=== PATIENT | female | born 1985 | race Caucasian/White ===

== ENCOUNTER 2018-07-18 18:21 | Emergency (ER) | payer SELFPAY ==
[~2018-07-18] VITALS: Ht 160 cm; Wt 88.2 kg
[2018-07-18 18:34] VITALS: BP 122/82
--- NOTE | 2018-07-18 19:27 | PHYS DOC ---
Past History Past Medical History: Depression Past Surgical History: Other Alcohol Use: Occasionally Drug Use: None Adult General Chief Complaint Chief Complaint: WOUND CHECK HPI HPI 32-year-old female presents for wound check of her left index finger. The patient was seen in another local hospital he days ago after cutting off the end of her finger. They sewed back on but told her that it was likely to . The skin is now a dark color and she is concerned. She does not want to get infected. Patient does not have a primary care physician. She was not referred to wound care. She denies fever or chills. He has no new complaints. Review of Systems Review of Systems Constitutional: Denies fever or chills [] Eyes: Denies change in visual acuity, redness, or eye pain [] HENT: Denies nasal congestion or sore throat [] Respiratory: Denies cough or shortness of breath [] Cardiovascular: No additional information not addressed in HPI [] GI: Denies abdominal pain, nausea, vomiting, bloody stools or diarrhea [] : Denies dysuria or hematuria [] Musculoskeletal: Denies back pain or joint pain [] Integument: Skin avulsion left index finger[] Neurologic: Denies headache, focal weakness or sensory changes [] Endocrine: Denies polyuria or polydipsia [] All other systems were reviewed and found to be within normal limits, except as documented in this note. Allergies Allergies Allergies Coded Allergies Type Severity Reaction Last Updated Verified amoxicillin Allergy Unknown Itching 07/18/18 Yes Physical Exam Physical Exam Constitutional: Well developed, well nourished, no acute distress, non-toxic appearance. [] HENT: Normocephalic, atraumatic, bilateral external ears normal, oropharynx moist, no oral exudates, nose normal. [] Eyes: PERRLA, EOMI, conjunctiva normal, no discharge. [] Neck: Normal range of motion, no tenderness, supple, no stridor. [] Cardiovascular:Heart rate regular rhythm, no murmur [] Lungs & Thorax: Bilateral breath sounds clear to auscultation [] Abdomen: Bowel sounds normal, soft, no tenderness, no masses, no pulsatile masses. [] Skin: Left index finger with a sutured flap. There is nonviable tissue as well as viable tissue. Then nontraumatized tissue is pink and appropriate. There are no signs of infection.[] Back: No tenderness, no CVA tenderness. [] Extremities: No tenderness, no cyanosis, no clubbing, ROM intact, no edema. [] Neurologic: Alert and oriented X 3, normal motor function, normal sensory function, no focal deficits noted. [] Psychologic: Affect normal, judgement normal, mood normal. [] Current Patient Data Vital Signs Vital Signs Date Time Temp Pulse Resp B/P (MAP) Pulse Ox O2 Delivery O2 Flow Rate FiO2 07/18/18 18:34 98.8 83 18 100 Room Air EKG EKG [] Radiology/Procedures Radiology/Procedures [] Course & Med Decision Making Course & Med Decision Making Pertinent Labs and Imaging studies reviewed. (See chart for details) Patient's wound is as I would expect with a complete avulsion of skin. The skin was sewn back on is dying. Explained to the patient that he would be a long wound healing process. She should follow up as directed by the other facility. She might consider a referral to wound care. I do not see any sign of infection. She is stable for discharge at this time. [] Dragon Disclaimer Dragon Disclaimer This electronic medical record was generated, in whole or in part, using a voice recognition dictation system. Departure Departure: Impression: Primary Impression: Avulsion of skin of finger Disposition: 01 HOME, SELF-CARE Condition: STABLE Referrals: PCPMARLON (PCP) Patient Instructions: Finger Avulsion ADAN PARKER DO Jul 18, 2018 19:27
== END 2018-07-18 19:33 | disposition home or self-care (01) ==
LOC: ER 18:21
DX: S61.301A Unspecified open wound of left index finger with damage to nail, initial encounter (principal); F32.9 Major depressive disorder, single episode, unspecified; Z88.1 Allergy status to other antibiotic agents; X58.XXXA Exposure to other specified factors, initial encounter; Y93.89 Activity, other specified; Y92.89 Other specified places as the place of occurrence of the external cause; Y99.8 Other external cause status
CPT/HCPCS: 99281

== ENCOUNTER 2019-03-02 13:40 | Emergency (ER) | payer SELFPAY ==
[~2019-03-02] VITALS: Ht 160 cm; Wt 88.2 kg
--- NOTE | 2019-03-02 14:00 | EKG ---
[address] [address] Test Date: 2019-03-02 Test Time: 13:57:06 Pat Name: DESTINY PATRICK Department: Room: Gender: F Social Scientist: TONEY : 1985 Requested By: VALENTINO HOUSER Order Number: [id number] Reading MD: Measurements Intervals [place] Rate: 75 P: 47 OK: 116 QRS: 52 QRSD: 88 T: 41 QT: 356 QTc: 400 Interpretive Statements SINUS RHYTHM QRS(T) CONTOUR ABNORMALITY CONSIDER ANTEROLATERAL MYOCARDIAL DAMAGE T ABNORMALITY IN ANTEROSEPTAL LEADS ABNORMAL ECG RI6.01 No previous ECG available for comparison
--- NOTE | 2019-03-02 14:27 | RAD ---
Single view of the chest. 03/02/2019 1:57 PM Indication: Chest pain Comparison: None Findings: There is no focal consolidation. There is no pleural effusion or pneumothorax. The cardiomediastinal silhouette and pulmonary vasculature are within normal limits. No acute osseous abnormalities are seen. Impression: No evidence of acute cardiopulmonary process. Electronically signed by: Valeriy Castrejon MD (03/02/2019 2:24 PM) [facility]
[2019-03-02 14:51] LABS: BASO % 1 % (0-3); EOS % 1 % (0-3); HEMATOCRIT 41.2 % (36.0-47.0); HEMOGLOBIN 13.7 g/dL (12.0-15.5); LYMPH # 1.3 x10^3/uL (1.0-4.8); LYMPH % 28 % (24-48); MEAN CORPUSCULAR HEMOGLOBIN 31 pg (25-35); MEAN CORPUSCULAR HGB CONC 33 g/dL (31-37); MEAN CORPUSCULAR VOLUME 92 fL (79-100); MONO # 0.3 x10^3/uL (0.0-1.1); MONO % 7 % (0-9); NEUT # 3.1 x10^3uL (1.8-7.7); NEUT % 64 % (31-73); PLATELET COUNT 272 x10^3/uL (140-400); RED BLOOD COUNT 4.48 x10^6/uL (3.50-5.40); RED CELL DISTRIBUTION WIDTH 15.3 % (11.5-14.5); WHITE BLOOD COUNT 4.9 x10^3/uL (4.0-11.0)
[2019-03-02 15:01] LABS: ALBUMIN 3.8 g/dL (3.4-5.0); CALCIUM 8.9 mg/dL (8.5-10.1); CREATININE 0.7 mg/dL (0.6-1.0); TOTAL PROTEIN 7.6 g/dL (6.4-8.2)
[2019-03-02 15:02] LABS: GFR 96.4; TOTAL BILIRUBIN 0.3 mg/dL (0.2-1.0)
[2019-03-02 15:16] VITALS: BP 114/79
--- NOTE | 2019-03-02 17:33 | PHYS DOC ---
Past History Past Medical History: Depression Past Surgical History: No Surgical History Alcohol Use: None Drug Use: None Adult General Chief Complaint Chief Complaint: CHEST PAIN HPI HPI Patient is a 33-year-old female presenting with dizziness. She says that for the last 3 weeks she has had almost daily chest discomfort described as tightness in the heart racing she says it happens when she gets stressed out and usually happens when she sitting down or lying flat it does not happen with exertion usually. Then yesterday she was at work she was cleaning an oven when she was sort of crouched over and then stood up quickly she got very lightheaded like a head andujar and she thought she might pass out this concerned her so she came to the emergency room today for evaluation. Patient has psychiatric medication denies cardiac history denies her blood pressure denies smoking Review of Systems Review of Systems Constitutional: Denies fever or chills [] Eyes: Denies change in visual acuity, redness, or eye pain [] HENT: Denies nasal congestion or sore throat [] Respiratory : Denies dysuria or hematuria [] Musculoskeletal: Denies back pain or joint pain [] Integument: Denies rash or skin lesions [] Neurologic: Denies headache, focal weakness or sensory changes [] Endocrine: Denies polyuria or polydipsia [] All other systems were reviewed and found to be within normal limits, except as documented in this note. Allergies Allergies Allergies Coded Allergies Type Severity Reaction Last Updated Verified amoxicillin Allergy Unknown Itching 07/18/18 Yes Physical Exam Physical Exam Constitutional: Well developed, well nourished, no acute distress, non-toxic sid earance. [] HENT: Normocephalic, atraumatic, bilateral external ears normal, oropharynx moist, no oral exudates, nose normal. [] Eyes: PERRLA, EOMI, conjunctiva normal, no discharge. [] Neck: Normal range of motion, no tenderness, supple, no stridor. [] Cardiovascular:Heart rate regular rhythm, no murmur [] Lungs & Thorax: Bilateral breath sounds clear to auscultation [] Abdomen: Bowel sounds normal, soft, no tenderness, no masses, no pulsatile masses. [] Skin: Warm, dry, no erythema, no rash. [] Back: No tenderness, no CVA tenderness. [] Extremities: No tenderness, no cyanosis, no clubbing, ROM intact, no edema. [] Neurologic: Alert and oriented X 3, normal motor function, normal sensory function, no focal deficits noted. []Are intact bilaterally no nystagmus patient has a normal gait Psychologic: Affect normal, judgement normal, mood normal. [] Current Patient Data Vital Signs Vital Signs Date Time Temp Pulse Resp B/P (MAP) Pulse Ox O2 Delivery O2 Flow Rate FiO2 03/02/19 15:16 98.4 77 18 98 Room Air perature (Fahrenheit): * 98.4 degrees F (97.6-99.5) Patient Temperature * 98.4 degrees F (97.5-99.5) Temperature Source * Oral Blood Pressure Systolic * 114 mm Hg (100-140) Blood Pressure Diastolic * 79 mm Hg (60-100) Blood Pressure Mean * 91 mm Hg Pulse Rate * 77 beats per minute (60-90) Respiratory Rate * 18 breaths per minute (12-24) Oxygen Delivery Method * Room Air Bedside Pulse Oximetry * 98 % Treatment Prior to Arrival * Yes Lab Results Laboratory Tests Test 03/02/19 14:31 White Blood Count 4.9 x10^3/uL (4.0-11.0) Red Blood Count 4.48 x10^6/uL (3.50-5.40) Hemoglobin 13.7 g/dL (12.0-15.5) Hematocrit 41.2 % (36.0-47.0) Mean Corpuscular Volume 92 fL (79-100) Mean Corpuscular Hemoglobin 31 pg (25-35) Mean Corpuscular Hemoglobin Concent 33 g/dL (31-37) Red Cell Distribution Width 15.3 % (11.5-14.5) H Platelet Count 272 x10^3/uL (140-400) Neutrophils (%) (Auto) 64 % (31-73) Lymphocytes (%) (Auto) 28 % (24-48) Monocytes (%) (Auto) 7 % (0-9) Eosinophils (%) (Auto) 1 % (0-3) Basophils (%) (Auto) 1 % (0-3) Neutrophils # (Auto) 3.1 x10^3uL (1.8-7.7) Lymphocytes # (Auto) 1.3 x10^3/uL (1.0-4.8) Monocytes # (Auto) 0.3 x10^3/uL (0.0-1.1) Eosinophils # (Auto) 0.0 x10^3/uL (0.0-0.7) Basophils # (Auto) 0.0 x10^3/uL (0.0-0.2) Maternal Serum HCG Beta Subunit 1 mIU/mL (0-6) Sodium Level 140 mmol/L (136-145) Potassium Level 4.0 mmol/L (3.5-5.1) Chloride Level 105 mmol/L (98-107) Carbon Dioxide Level 25 mmol/L (21-32) Anion Gap 10 (6-14) Blood Urea Nitrogen 15 mg/dL (7-20) Creatinine 0.7 mg/dL (0.6-1.0) Estimated GFR (Cockcroft-Gault) 96.4 BUN/Creatinine Ratio 21 (6-20) H Glucose Level 96 mg/dL (70-99) Calcium Level 8.9 mg/dL (8.5-10.1) Total Bilirubin 0.3 mg/dL (0.2-1.0) Aspartate Amino Transferase (AST) 13 U/L (15-37) L Alanine Aminotransferase (ALT) 16 U/L (14-59) Alkaline Phosphatase 61 U/L (46-116) Troponin I Quantitative < 0.017 ng/mL (0-0.055) Total Protein 7.6 g/dL (6.4-8.2) Albumin 3.8 g/dL (3.4-5.0) Albumin/Globulin Ratio 1.0 (1.0-1.7) EKG EKG []Normal sinus rhythm rate of [address] changes noted anteriorly no STEMI no obvious acute ischemia was identified no old EKG for comparison Radiology/Procedures Radiology/Procedures [] Impressions: Comparison: None Findings: There is no focal consolidation. There is no pleural effusion or pneumothorax. The cardiomediastinal silhouette and pulmonary vasculature are within normal limits. No acute osseous abnormalities are seen. Impression: No evidence of acute cardiopulmonary process. Electronically signed by: Valeriy Forte MD (03/02/2019 2:24 PM) [facility] DICTATED AND SIGNED BY: VALERIY FORTE MD DATE: 03/02/19 1422 CC: VALENTINO HOUSER MD; PCP,NO ~ Course & Med Decision Making Course & Med Decision Making Pertinent Labs and Imaging studies reviewed. (See chart for details) []This is a well-appearing 33-year-old female who presents with 3 weeks of chest discomfort with some associated palpitations very atypical sounding pain troponin negative after this long-standing time. No obvious ischemia was identified patient's chest pain is not exertional in nature. Had some dizziness yesterday could be hypovolemic recommended hydration no signs of objective neurologic deficit patient was discharged in stable condition perc negative no signs of dvt in exam no ocp vitals good Dragon Disclaimer Dragon Disclaimer This electronic medical record was generated, in whole or in part, using a voice recognition dictation system. Departure Departure: Impression: Primary Impression: Dizziness Disposition: 01 HOME, SELF-CARE Condition: STABLE Patient Instructions: Brien, [id number] VALENTINO HOUSER MD Mar 02, 2019 17:33
== END 2019-03-02 15:27 | disposition home or self-care (01) ==
LOC: ER 13:40
DX: R42 Dizziness and giddiness (principal); R07.89 Other chest pain; F32.9 Major depressive disorder, single episode, unspecified; Z88.1 Allergy status to other antibiotic agents
CPT/HCPCS: 36415; 71045; 80053; 84484; 84702; 85025; 93005; 99285

== ENCOUNTER 2020-02-28 22:56 | Emergency (ER) | payer SELFPAY ==
[~2020-02-28] VITALS: Ht 160 cm; Wt 88.2 kg
[2020-02-28 22:56] VITALS: BP 147/86
[2020-02-28] MEDS ORDERED: CLIN300C8 PO (23:20)
[2020-02-28] MEDS ORDERED: HYDR-3165 PO (23:20)
[2020-02-28] MEDS ORDERED: CHLO15MO2 PO (23:20)
--- NOTE | 2020-02-28 23:21 | PHYS DOC ---
Past History Past Medical History: Depression Past Surgical History: No Surgical History Smoking: Non-smoker Alcohol Use: None Drug Use: None General Adult EDM: Chief Complaint: Tooth ache HPI: HPI: 34-year-old female presents with 2-week history of progressive dental pain primarily to the right lower wisdom tooth. Patient reports she has not followed with a dentist for several years. Denies smoking. Denies fever or chills. Denies trauma. Patient reports she has been brushing her teeth and has noted pieces of the tooth have been falling out. Denies . Review of Systems: Review of Systems: Constitutional: Denies fever or chills HENT: Denies nasal congestion or sore throat; reports tooth ache Integument: Denies rash or skin lesions Neurologic: Denies headache, focal weakness or sensory changes Complete systems were reviewed and found to be within normal limits, except as documented in this note. Current Medications: Current Meds: Current Medications Medications (Trade) Dose Ordered Sig/Saul Start Time Stop Time Status Last Admin Dose Admin Clindamycin HCl (Cleocin) 450 mg 1X ONCE 02/28/20 23:30 02/28/20 23:31 Dexamethasone (Decadron) 10 mg 1X ONCE 02/28/20 23:30 02/28/20 23:31 Allergies: Allergies: Allergies Coded Allergies Type Severity Reaction Last Updated Verified amoxicillin Allergy Unknown Itching 07/18/18 Yes Physical Exam: PE: Constitutional: Well developed, well nourished, appears uncomfortable, non-toxic appearance HENT: Normocephalic, atraumatic, poor dentition, pain on palpation to right mandibular third molar, dental caries noted Eyes: Conjunctiva normal, no discharge Neck: Normal range of motion, no tenderness, supple Lungs & Thorax: No respiratory distress, equal chest rise and fall Skin: Warm, dry, no erythema, no rash Neurologic: Alert and oriented X 3, no focal deficits noted Psychologic: Affect normal, judgment normal EKG: EKG: [] Radiology/Procedures: Radiology/Procedures: [] Course & Med Decision Making: Course & Med Decision Making Patient presents with acute dentalgia with poor dentition noted. Empiric antibiotic initiated. Pain addressed. Patient stable for discharge with outpatient follow-up with PCP/dentist. Dental resources provided. Discussed findings and plan with patient, who acknowledges understanding and agreement. Reji Disclaimer: Reji Disclaimer: This electronic medical record was generated, in whole or in part, using a voice recognition dictation system. Departure Departure: Impression: Primary Impression: Dentalgia Additional Impression: Dental caries Disposition: 01 DC HOME SELF CARE/HOMELESS Condition: STABLE Referrals: NON,STAFF (PCP) Patient Instructions: Dental Caries, Toothache-Brief Additional Instructions: May also use over the counter Ibuprofen for pain or discomfort. Scripts Clindamycin Hcl (CLINDAMYCIN HCL) 300 Mg Capsule 1 CAP PO TID for infection for 7 Days, #21 CAP Prov: BG GATICA DO 02/28/20 Hydrocodone Bit/Acetaminophen (NORCO 5-325 TABLET) 1 Each Tablet 0.5-1 TAB PO Q6HRS PRN for PAIN, #10 TAB Prov: BG GATICA DO 02/28/20 Chlorhexidine Gluconate (PERIDEX) 15 Ml Mouthwash 15 ML PO BID for dental infection for 7 Days, #473 ML 0 Refills Prov: BG GATICA DO 02/28/20 BG GATICA DO Feb 28, 2020 23:20
[2020-02-28] MEDS ORDERED: CLINDAMYCIN HCL 150 MG CAPSULE PO ONE (23:30)
[2020-02-28] MEDS ORDERED: HYDROcodone/APAP 5/325MG 1 TAB TABLET PO ONE (23:30)
[2020-02-28] MEDS ORDERED: DEXAMETHASONE 4 MG TABLET PO ONE (23:30)
== END 2020-02-28 23:41 | disposition home or self-care (01) ==
LOC: ER 22:56
DX: K02.9 Dental caries, unspecified (principal); F32.9 Major depressive disorder, single episode, unspecified; Z88.1 Allergy status to other antibiotic agents
CPT/HCPCS: 99284; J8540

== ENCOUNTER 2021-04-21 11:27 | Emergency (ER) | payer SELFPAY ==
[~2021-04-21] VITALS: Ht 160 cm; Wt 88.2 kg
[~2021-04-21 11:27] MED LIST: CHLO15MO2 PO; CLIN-95 PO; HYDR-3165 PO
[2021-04-21 12:18] VITALS: BP 113/69
[2021-04-21] MEDS ORDERED: KETO15CR2 TP (13:12)
--- NOTE | 2021-04-21 13:13 | PHYS DOC ---
Past History Past Medical History: Depression Additional Past Medical Histor: dyshidrotic eczema (ABRAHAN CAMPBELL APRN) Past Surgical History: No Surgical History (ABRAHAN CAMPBELL APRN) Smoking: Non-smoker Alcohol Use: None Drug Use: None (ABRAHAN CAMPBELL APRN) General Adult EDM: Chief Complaint: SKIN RASH/ABSCESS HPI: HPI: Patient is a 35-year-old female who presents to the emergency department for eczema to her right palm that started 2 days ago. Patient reports that she uses ketoconazole but it is . She is reporting itching, scaly dermatitis-like rash to her right palm. Patient is requesting a steroid shot. She reports that she normally receives these whenever she has an eczema flare and it helps her symptoms. Patient denies any fevers, joint pain. (ABRAHAN CAMPBELL APRN) Review of Systems: Review of Systems: Constitutional: See HPI Musculoskeletal: See HPI Integument: See HPI (ABRAHAN CAMPBELL APRN) Allergies: Allergies: Allergies Coded Allergies Type Severity Reaction Last Updated Verified amoxicillin Allergy Unknown Itching 07/18/18 Yes (ABRAHAN CAMPBELL APRN) Physical Exam: PE: Constitutional: Well developed, well nourished, no acute distress, non-toxic appearance. [] HENT: Normocephalic, atraumatic, bilateral external ears normal, oropharynx moist, no oral exudates, nose normal. [] Eyes: PERRL, EOMI, conjunctiva normal, no discharge. [] Neck: Normal range of motion, no stridor Cardiovascular: Normal peripheral perfusion Lungs & Thorax: Normal work of breathing, no tachypnea Abdomen: Soft and flat Skin: Warm, dry, dry, scaly, erythematous rash noted to right palm Back: Range of motion Extremities: No tenderness, no cyanosis, no clubbing, ROM intact, no edema. [] Neurologic: Alert and oriented X 3, normal motor function, normal sensory function, no focal deficits noted. Right hand: Range of motion intact, neuro intact, no redness or streaking up patient's arm, no warmth Psychologic: Affect normal, judgement normal, mood normal. [] (ABRAHAN CAMPBELL APRN) Current Patient Data: Vital Signs: Vital Signs Date Time Temp Pulse Resp B/P (MAP) Pulse Ox O2 Delivery O2 Flow Rate FiO2 12/28/21 12:18 98.8 89 16 113/69 (84) 98 04/21/21 12:18 Room Air (ABRAHAN CAMPBELL APRN) EKG: EKG: [] (ABRAAHN CAMPBELL APRN) Radiology/Procedures: Radiology/Procedures: [] (ABRAHAN CAMPBELL APRN) Heart Score: C/O Chest Pain: N/A Risk Factors: Risk Factors: DM, Current or recent (<one month) smoker, HTN, HLP, family history of CAD, obesity. Risk Scores: Score 0 - 3: 2.5% MACE over next 6 weeks - Discharge Home Score 4 - 6: 20.3% MACE over next 6 weeks - Admit for Clinical Observation Score 7 - 10: 72.7% MACE over next 6 weeks - Early Invasive Strategies (ABRAHAN CAMPBELL APRN) Course & Med Decision Making: Course & Med Decision Making Pertinent Labs and Imaging studies reviewed. (See chart for details) [] Patient presents to the emergency department for a rash to her right palm. Patient reports that this is consistent with her eczema. She takes ketoconazole but it is . Patient is requesting a shot of a steroid. I discussed with patient need for steroid taper and she states that she normally receives a steroid shot and it helps with her symptoms and does not need a steroid taper. Patient will also be discharged home with her steroid cream. I discussed with patient all findings and diagnostic testing as well as the need to follow-up with PCP for further evaluation and treatment or return to the ER if any new or worsening symptoms. Strict return precautions were also discussed at length. Patient voiced understanding and agreement with the plan. Patient is hemodynamically stable at the time of disposition. (ABRAHAN CAMPBELL APRN) Dragon Disclaimer: Dragon Disclaimer: This electronic medical record was generated, in whole or in part, using a voice recognition dictation system. (ABRAHAN CAMPBELL APRN) Attending Co-Sign The patient was seen and interviewed as well as examined at the bedside. The chart was reviewed. The case was discussed. Agree with the plan of care. (ADAN PARKER DO) Departure Departure: Impression: Primary Impression: Dermatitis Disposition: HOME / SELF CARE / HOMELESS Condition: GOOD Referrals: PCP,NO (PCP) Patient Instructions: Eczema Additional Instructions: You are seen in the emergency department for an eczema-like rash to your right palm. This will be treated with a steroid shot in the ER. You are also being discharged home with a steroid cream to use as instructed. Please follow-up with your primary care provider tomorrow regarding your ER visit. Please return to the emergency department if your rash worsens you develop high fevers refractory to treatment, severe joint pain, intractable nausea or vomiting. Scripts Ketoconazole (KETOCONAZOLE) 15 Gm Cream..g. 1 CARLITOS TP BID for rash, #60 GM 0 Refills Prov: ABRAHAN CAMPBELL APRN 04/21/21 ABRAHAN CAMPBELL APRN Apr 21, 2021 13:13 ADAN PARKER DO Apr 22, 2021 06:47
[2021-04-21] MEDS ORDERED: DEXAMETHASONE SOD PHOS 10 MG/ML VIAL. IM ONE (13:30)
== END 2021-04-21 13:34 | disposition home or self-care (01) ==
LOC: ER 11:27
DX: L30.9 Dermatitis, unspecified (principal); Z88.1 Allergy status to other antibiotic agents
CPT/HCPCS: 96372; 99283; J1100

== ENCOUNTER 2021-05-26 19:48 | Emergency (ER) | payer SELFPAY ==
[~2021-05-26] VITALS: Ht 160 cm; Wt 88.2 kg
[~2021-05-26 19:48] MED LIST changes: +KETO15CR2 TP
[2021-05-26 19:59] VITALS: BP 133/83
--- NOTE | 2021-05-26 20:08 | PHYS DOC ---
Past History Past Medical History: Depression Additional Past Medical Histor: dyshidrotic eczema (BG COLLINS APRN) Past Surgical History: No Surgical History (BG COLLINS APRN) Smoking: Non-smoker Alcohol Use: None Drug Use: None (BG COLLINS APRN) Adult General Chief Complaint Chief Complaint: SKIN PROBLEM HPI HPI Patient is a 35-year-old female who presents to the emergency department complaining of an eczema flareup of both hands. Patient reports she was here at the end of March and was prescribed ketoconazole cream for her eczema, reports it is not working and has become worse over the past week. Patient states she was given an injection of a steroid during her last visit here that seemed to help. Patient reports her eczema breakout is typical for a "bad "breakout. Patient states it is very itchy. Patient denies other eczema rashes to her skin other than her hands. Patient denies taking any medication for itching. Patient denies other physical complaints or physical concerns. (BG COLLINS APRN) Review of Systems Review of Systems 14 body systems of review of systems have been reviewed. See HPI for pertinent positives and negative responses, otherwise all other systems are negative, nonpertinent or noncontributory. Constitutional: Negative except as outlined in HPI above. Skin: Negative except as outlined in HPI above. Eyes: Negative except as outlined in HPI above. HENT: Negative except as outlined in HPI above. Respiratory: Negative except as outlined in HPI above. Cardiovascular: Negative except as outlined in HPI above. GI: Negative except as outlined in HPI above. : Negative except as outlined in HPI above. Musculoskeletal: Negative except as outlined in HPI above. Integument: Negative except as outlined in HPI above. Neurologic: Negative except as outlined in HPI above. Endocrine: Negative except as outlined in HPI above. Lymphatic: Negative except as outlined in HPI above. Psychiatric: Negative except as outlined in HPI above. (BG COLLINS APRN) Allergies Allergies Allergies Coded Allergies Type Severity Reaction Last Updated Verified amoxicillin Allergy Unknown Itching 07/18/18 Yes (BG COLLINS APRN) Physical Exam Physical Exam Constitutional: Well developed, well nourished, no acute distress, non-toxic appearance. 35-year-old female in no apparent distress. HENT: Normocephalic, atraumatic. Eyes: Conjunctiva normal, no discharge. Neck: Normal range of motion, no stridor. Cardiovascular: No cyanosis appreciated, distal cap refill less than 2 seconds. Lungs & Thorax: Patient is in no respiratory distress, no audible adventitious lung sounds appreciated. Abdomen: Nontender, no abnormalities noted. Skin: Warm, dry, no erythema, no rash. Except for bilateral hands, erythematous scaling rash concentrated at thenar area of both palms, scant patches along dorsal aspect of hand, the wrists are spared. The fingers are spared. No drainage appreciated Back: No tenderness, no deformities. Extremities: No tenderness, no cyanosis, no clubbing, ROM intact, no edema. Neurologic: Alert and oriented X 3, normal motor function, normal sensory function, no focal deficits noted. Psychologic: Affect normal, judgement normal, mood normal. (BG COLLINS APRN) Current Patient Data Vital Signs Vital Signs Date Time Temp Pulse Resp B/P (MAP) Pulse Ox O2 Delivery O2 Flow Rate FiO2 05/26/21 19:59 98.4 64 16 133/83 (100) 99 Room Air (BG COLLINS APRN) EKG EKG [] (BG COLLINS APRN) Radiology/Procedures Radiology/Procedures [] (BG COLLINS APRN) Heart Score C/O Chest Pain: No Risk Factors: Risk Factors: DM, Current or recent (<one month) smoker, HTN, HLP, family history of CAD, obesity. Risk Scores: Risk Factors: DM, Current or recent (<one month) smoker, HTN, HLP, family history of CAD, obesity. (BG COLLINS APRN) Course & Med Decision Making Course & Med Decision Making Pertinent Labs and Imaging studies reviewed. (See chart for details) 35-year-old female, vital signs reviewed, presents to the emergency department concerning an eczema flareup of both hands. Physical examination is consistent with atopic dermatitis/eczema. Patient did bring ointment of ketoconazole. Di scussed with patient will change to betamethasone dipropionate cream prescription, will give Benadryl in ED today, will also give Depo-Medrol intramuscular injection. Discussed with patient strict follow-up with dermatology this week. Reviewed return needed ER precautions and concerns. Patient gave verbal understanding of and is amenable to ED discharge planning. Discussed with the patient all findings and diagnostic testing as well as the need to follow-up with their primary care provider for further evaluation and treatment or return to the ED if any new or worsening symptoms. Strict return precautions were also discussed at length, the patient voiced understanding and agreement with the discharge planning. The patient was nontoxic in appearance, in no apparent distress, and hemodynamically stable at the time of disposition. (BG COLLINS APRN) Course & Med Decision Making Did not see or evaluate patient. Did not discuss patient with SALES NEGOTIATOR. Agree with SALES NEGOTIATOR work-up and disposition per note. (OMI DE SOUZA MD) Dragon Disclaimer Dragon Disclaimer This electronic medical record was generated, in whole or in part, using a voice recognition dictation system. (BG COLLINS APRN) Departure Departure: Impression: Primary Impression: Atopic dermatitis of both hands Additional Impression: Eczema of both hands Disposition: HOME / SELF CARE / HOMELESS Condition: GOOD Referrals: PILAR DEVINE (PCP) Patient Instructions: Eczema Additional Instructions: You were seen today in the emergency department for a flareup of your eczema. You were given an intramuscular injection steroid medication today. I have sent a prescription for a steroid cream for you to use twice a day. You were also given oral Benadryl for itching. You may use [id number] oral Benadryl for any returning itching. Please follow-up with a set up worker this week. If you do not have a set up worker, you may consider using the [facility] [place] located at [facility] [place] [address] in [facility]. There telephone number is area code . Call tomorrow for the earliest appointment. Return to the emergency department for worsening symptoms or other concerns. Thank you for visiting our Emergency Department. It was a pleasure taking care of you today in the emergency department and we appreciate you trusting us with your care. If any additional problems come up don't hesitate to return to visit us. Please follow up with your primary care provider so they can plan additional care if needed and know about the problem that you had. If symptoms worsen come back to the Emergency Department. Any concerning symptoms that start such as chest pain, shortness of air, weakness or numbness on one side of the body, running high fevers or any other concerning symptoms return to the ER. Scripts Betamethasone Dipropionate (BETAMETHASONE DIPROPIONATE) 15 Gm Cream..g. 1 CARLITOS TP BID for atopic dermatitis, #45 GM 1 Refill Apply to affected areas on hands twice a day for the next 14 days. Prov: BG COLLINS APRN 05/26/21 Problem Qualifiers BG COLLINS APRN May 26, 2021 20:08 OMI DE SOUZA MD May 26, 2021 20:37
[2021-05-26] MEDS ORDERED: diphenhydrAMINE HCL 25 MG CAPSULE PO ONE ×2 (20:11→20:15)
[2021-05-26] MEDS ORDERED: methylPREDNISolone ACETATE 40 MG/ML VIAL. IM ONE (20:15)
[2021-05-26] MEDS ORDERED: BETA15CR5 TP (20:19)
== END 2021-05-26 20:31 | disposition home or self-care (01) ==
LOC: ER 19:48
DX: L20.9 Atopic dermatitis, unspecified (principal); L30.9 Dermatitis, unspecified; Z88.1 Allergy status to other antibiotic agents
CPT/HCPCS: 96372; 99283; J1030; Q0163